=== PATIENT | male | born 1935 | race Caucasian/White ===

== ENCOUNTER 2016-12-23 08:18 | Emergency (ER) | payer MEDICARE, BC ==
--- NOTE | 2016-12-23 08:36 | Emergency Department Record ---
History of Present Illness - General Chief Complaint: Abdominal Pain Stated Complaint: ABD PAIN Time Seen by Provider: 12/23/16 08:29 Mode of Arrival: Ambulatory - History of Present Illness Initial Comments: patient has abd pain for 7 days and bloated and burping and having BM's last one last night. The pain is in the periumbilical area and now in all four quadrants. [facility] cardiac surg and he had pericardial fluid and had a window placed at [facility] Dr. Tee. No abdominal surg. PMH hypercholesterolemia, No vomiting ,No diarrhea but stools are loose, Past colonoscopy about 4 years ago with polps, EGD over 10 years ago history of diverticulosis MD Complaint: Abdominal pain Onset/Timin -: Week(s) Location: Epigastric Radiation: None Migration to: No migration Consistency: Intermittent Improves With: Nothing Worsens With: Nothing Associated Symptoms: Denies other symptoms - Related Data Home Medications Medication Instructions Recorded Confirmed Last Taken Pantoprazole Sodium 40 mg PO DAILY 12/23/16 12/23/16 Unknown Previous Rx's Medication Instructions Recorded Amoxicillin/Potassium Clav 1 each PO TID #30 tablet 12/23/16 [Augmentin 500-125 Tablet] Allergies Allergy/AdvReac Type Severity Reaction Status Date / Time No Known Drug Allergies Allergy Verified 07/17/14 11:14 Travel Screening - Travel/Exposure Within Last 30 Days Have you traveled within the last 30 days?: No Review of Systems Reviewed: No additional complaints except as noted below Constitutional: Reports: As per HPI. Denies: Chills, Fever, Malaise, Night sweats, Weakness, Weight change Eyes: Reports: As per HPI. Denies: Eye discharge, Eye pain, Photophobia, Vision change ENT: Reports: As per HPI. Denies: Congestion, Dental pain, Ear pain, Epistaxis , Hearing loss, Throat pain Respiratory: Reports: As per HPI. Denies: Cough, Dyspnea, Hemoptysis, Stridor, Wheezes Cardiovascular: Reports: As per HPI. Denies: Arrhythmia, Chest pain, Dyspnea on exertion, Edema, Murmurs, Orthopnea, Palpitations, Paroxysmal nocturnal dyspnea, Rheumatic Fever, Syncope Endocrine: Reports: As per HPI. Denies: Fatigue, Heat or cold intolerance, Polydipsia, Polyuria Gastrointestinal: Reports: As per HPI. Denies: Abdominal pain, Constipation, Diarrhea, Hematemesis, Hematochezia, Melena, Nausea, Vomiting Genitourinary: Reports: As per HPI. Denies: Dysuria, Frequency, Hematuria, Incontinence, Retention, Testicular pain, Testicular mass, Urgency Musculoskeletal: Reports: As per HPI. Denies: Arthralgia, Back pain, Gout, Joint swelling, Myalgia, Neck pain Skin: Reports: As per HPI. Denies: Bruising, Change in color, Change in hair/ nails, Lesions, Pruritus, Rash Neurological: Reports: As per HPI. Denies: Abnormal gait, Confusion, Headache, Numbness, Paresthesias, Seizure, Tingling, Tremors, Vertigo, Weakness Psychiatric: Reports: As per HPI. Denies: Anxiety, Auditory hallucinations, Depression, Homicidal thoughts, Suicidal thoughts, Visual hallucinations Hematological/Lymphatic: Reports: As per HPI. Denies: Anemia, Blood Clots, Easy bleeding, Easy bruising, Swollen glands Past Medical History - SOCIAL HISTORY Smoking Status: Former smoker Alcohol Use: None Drug Use: None - RESPIRATORY Hx Respiratory Disorders: Yes Hx Sleep Apnea: Yes - CARDIOVASCULAR Hx Cardio Disorders: Yes Hx Abnormal EKG: Yes Hx Cardiac Cath: Yes Hx Chest Pain: Yes Hx Heart Attack: Yes Hx Hypertension: Yes - NEURO Hx Neuro Disorders: No - GI Hx GI Disorders: No Hx of Polyps: Yes - Hx Genitourinary Disorders: No - ENDOCRINE Hx Endocrine Disorders: Yes Hx Diabetes: No Hx Thyroid Disease: Yes (hypo) - MUSCULOSKELETAL Hx Musculoskeletal Disorders: No - PSYCH Hx Psych Problems: No Hx Anxiety: Yes - HEMATOLOGY/ONCOLOGY Hx Hematology/Oncology Disorders: No Hx Cancer: No Family Medical History Any Significant Family History?: Yes Hx Heart Disease: Father, Brother/Sister Physical Exam - General General Appearance: Alert, Oriented x3, Cooperative, No acute distress - Head Head exam: Normal inspection - Eye Eye exam: Normal appearance, PERRL Pupils: Normal accommodation - ENT ENT exam: Normal exam, Mucous membranes moist, Normal external ear exam, Normal orophraynx, TM's normal bilaterally Ear exam: Normal external inspection. negative: External canal tenderness Nasal Exam: Normal inspection. negative: Discharge, Sinus tenderness Mouth exam: Normal external inspection, Tongue normal Teeth exam: Normal inspection. negative: Dental caries Throat exam: Normal inspection. negative: Tonsillar erythema, Tonsillar exudate - Neck Neck exam: Normal inspection, Full ROM. negative: Tenderness - Respiratory Respiratory exam: Normal lung sounds bilaterally. negative: Respiratory distress - Cardiovascular Cardiovascular Exam: Regular rate, Normal rhythm, Normal heart sounds - GI/Abdominal GI/Abdominal exam: Soft, Normal bowel sounds, Distended, Tenderness. negative: Guarding, Mass, Rebound, Rigid - Rectal Rectal exam: Deferred - exam: Deferred - Extremities Extremities exam: Normal inspection, Full ROM, Normal capillary refill. negative: Tenderness - Back Back exam: Reports: Normal inspection, Full ROM. Denies: Muscle spasm, Rash noted, Tenderness - Neurological Neurological exam: Alert, Normal gait, Oriented X3, Reflexes normal - Psychiatric Psychiatric exam: Normal affect, Normal mood - Skin Skin exam: Dry, Intact, Normal color, Warm Course Vital Signs 12/23/16 08:22 Temperature 98.2 F Pulse Rate 70 Respiratory 20 Rate Blood Pressure 170/74 Pulse Ox 94 L Medical Decision Making - Lab Data Result diagrams: 12/23/16 08:55 12/23/16 08:55 Disposition Clinical Impression: Total bilirubin, elevated Abdominal pain Qualifiers: Abdominal location: periumbilical Qualified Code(s): R10.33 - Periumbilical pain Diverticulitis large intestine Qualifiers: Diverticulitis bleeding: without bleeding Diverticulitis complication: without perforation or abscess Qualified Code(s): K57.32 - Diverticulitis of large intestine without perforation or abscess without bleeding Gallstone Qualifiers: Cholecystitis presence: without cholecystitis Biliary obstruction: without biliary obstruction Qualified Code(s): K80.20 - Calculus of gallbladder without cholecystitis without obstruction Disposition: Home, Self-Care Condition: (1) Good Instructions: Diverticulitis (ED) Additional Instructions: follow up with Dr. Manriquez in 5 days clear liquids and low fat diet Prescriptions: Amoxicillin/Potassium Clav [Augmentin 500-125 Tablet] 1 each PO TID #30 tablet Forms: Patient Portal Access Quality - Quality Measures Quality Measures: N/A - Blood Pressure Screening Does Patient Have Any of the Following: No Blood Pressure Classification: Hypertensive Reading Systolic Measurement: 170 Diastolic Measurement: 74 Screening for High Blood Pressure: < First Hypertensive BP, F/U Documented > [ G8950] First Hypertensive Follow-up Interventions: Referral to alternative/primary care provider.
[2016-12-23 09:01] LABS: BASO % 0.5 % (0-6); EOS % 2.5 % (0-6); GRAN % 77.5 % (47-80); HEMATOCRIT 41.8 % (42.0-52.0); HEMOGLOBIN 14.4 gm/dl (14.0-18.0); MEAN CELL VOLUME 93.1 fl (81-97); MEAN CORPUSCULAR HEMOGLOBIN 32.1 pg (27-33); MEAN CORPUSCULAR HGB CONC 34.4 g/dl (32-36); MONO % 9.5 % (0-9); PLATELET COUNT 225 K/uL (130-400); RED BLOOD COUNT 4.49 M/uL (4.40-5.70); RED CELL DISTRIBUTION WIDTH 13.6 % (11.5-14.5)
[2016-12-23] MEDS: 0.9 % SODIUM CHLORIDE 1000ML 1,000 ML IV PRN (09:04)
[2016-12-23 09:22] LABS: ALKALINE PHOSPHATASE 72 U/L (40-129); ALT/SGPT 14 U/L (<41); AST/SGOT 16 U/L (10.0-50.0); BILIRUBIN,DIRECT 0.2 mg/dL (0-0.3); BLOOD UREA NITROGEN 13 mg/dL (8-23); EST GLOMERULAR FILTRATION RATE > 60 mL/min; GLUCOSE,RANDOM 160 mg/dL (74-109); LIPASE 25 U/L (13-60)
[2016-12-23 10:31] LABS: URINE APPEARANCE CLEAR; URINE BILIRUBIN NEGATIVE (NEGATIVE); URINE BLOOD NEGATIVE (NEGATIVE); URINE COLOR YELLOW; URINE GLUCOSE (UA) NEGATIVE (NEGATIVE); URINE KETONE NEGATIVE (NEGATIVE); URINE LEUKOCYTE ESTERASE NEGATIVE (NEGATIVE); URINE NITRITE NEGATIVE (NEGATIVE); URINE PROTEIN NEGATIVE (NEGATIVE); URINE UROBILINOGEN 0.2 E.U./dL (0.20 - 1.00)
--- NOTE | 2016-12-24 11:01 | CT SCAN REPORT ---
EXAM: ABDOMEN AND PELVIS CT WITH IV CONTRAST HISTORY: ACUTE GENERALIZED PREDOMINANTLY PERIUMBILICAL ABDOMINAL PAIN, DISTENTION. TECHNIQUE: Contiguous axial images from the lung bases to the symphysis pubis were obtained after the uneventful intravenous administration of 100 ml of Omnipaque 300. Oral contrast was also utilized. Comparison: None. FINDINGS: There is a small amount of pleural based calcification on the left likely asbestos plaques. The lung bases are otherwise clear. The heart is mildly enlarged. The liver, spleen, and left kidney are unremarkable. Unilocular 1 cm cyst lower pole right kidney. The adrenals and pancreas are unremarkable. Minimal dependent hyperdensity in the gallbladder which could relate to tiny gallstones. No gallbladder distention, wall thickening or adjacent inflammation. There is circumferential wall thickening of the cecum measuring 15 mm in thickness with no significant pericecal fat stranding. There is also circumferential slightly asymmetric thickening of the terminal ileum measuring 14 mm in thickness. Normal appendix. The visualized loops of small and large bowel are of normal caliber. Moderate fecal material throughout the colon. Severe aortoiliac calcification without aneurysm. Severe calcification at the ostium of the celiac artery. Difficult to exclude severe stenosis. Severe calcification of the ostium and proximal SMA as well as the more distal SMA. Difficult to exclude severe stenosis. The ZUNILDA is patent. No free intraperitoneal fluid. Small, but conspicuous mesenteric lymph nodes in the right lower quadrant measuring 9 x 6 mm. No lytic or blastic lesion. IMPRESSION: 1. PROMINENT CIRCUMFERENTIAL WALL THICKENING OF THE CECUM WELL TERMINAL ILEUM WITH LACK OF ADJACENT INFLAMMATORY FAT STRANDING. THE DIAGNOSIS OF EXCLUSION IS PRIMARY MALIGNANCY. OTHER ETIOLOGIES WOULD INCLUDE ISCHEMIC COLITIS/ENTERITIS AND INFECTIOUS OR INFLAMMATORY PROCESS. RECOMMEND ENDOSCOPY WHEN THE PATIENT'S CONDITION ALLOWS TO FURTHER ASSESS. 2. SEVERE CALCIFICATION OF THE ABDOMINAL AORTA. CANNOT EXCLUDE SEVERE STENOSIS OF THE PROXIMAL CELIAC ARTERY AND SUPERIOR MESENTERIC ARTERY. 3. CHOLELITHIASIS WITHOUT SONOGRAPHIC EVIDENCE OF ACUTE CHOLECYSTITIS. 4. NORMAL APPENDIX. 5. CALCIFIED ASBESTOS PLAQUES LEFT LUNG BASE. JOB NUMBER: [id number] [facility]
== END 2016-12-23 12:22 | disposition home or self-care (01) ==
LOC: ER 08:18
DX: K80.20 Calculus of gallbladder without cholecystitis without obstruction (principal); K57.32 Diverticulitis of large intestine without perforation or abscess without bleeding; E80.6 Other disorders of bilirubin metabolism; I10 Essential (primary) hypertension; I25.2 Old myocardial infarction; Z87.891 Personal history of nicotine dependence
CPT/HCPCS: 99284 ×2; 96360; 96361; 83690; 85025; 80076; 80048; 81003; 74177; Q9967

== ENCOUNTER 2017-01-25 09:25 | Day surgery (SDC) | payer MEDICARE, BC ==
[2017-01-25] MEDS ORDERED: PROPOFOL 10 MG/ML VIAL IV ONE (09:26)
[2017-01-25] MEDS ORDERED: LIDOCAINE 2% MDV (20MG/ML) 20ML VIAL IV ONE (09:26)
--- NOTE | 2017-01-26 09:50 | Operative Note ---
Dictated by Dr. Francis Shannon DATE OF SURGERY: 01/25/2017 PREOPERATIVE DIAGNOSIS: Imaging findings. POSTOPERATIVE DIAGNOSIS: Ascending colon ulcer. PERFORMING PHYSICIAN: Andi Cavazos DO ASSISTING PHYSICIAN: Dr. Francis Shannon OPERATION: Diagnostic COLONOSCOPY with biopsy. ANESTHESIA: Provided by [facility] nurse cable coverer. For specific medications, please see medical records. INDICATIONS: The patient presented with CT findings of inflammation of the right colon. The patient has had colonoscopies in the past, most recent in 2012, being evaluated after 10 years for a screening colonoscopy. Did not indicate any history of adenomatous polyps and does have a history of diverticulosis. The patient does not report any abdominal pain or discomfort at this time. PROCEDURE: Risks and benefits of the colonoscopy were discussed in detail with the patient, and patient was given appropriate time to answer any questions. Consented for both the colonoscopy and anesthesia were signed, and the patient was then taken to endoscopy room where he was monitored with blood pressure cuff, pulse oximetry, and ECG tracing. The patient was then placed in the left lateral position and moderately sedated by the nurse cable coverer at bedside. Once it was confirmed that the patient was sedated, a rectal examination was done that did not show any abnormalities. Then a 180 colonoscope was lubricated and inserted into the rectum. Fluid and fecal matter was then suctioned and the scope was then advanced into the colon. Was able to advance the scope into the ascending colon where a linear ulceration that was semi-circumferential was appreciated on one of the colonic folds. At that point, the cecum could be identified by the ileocecal valve and seen from the mid ascending colon. Attempts were made to advance the colonoscope to cannulate the cecum including pressure stiffening of the scope and many attempts of decreasing any looping and suctioning, but all these failed to allow progression into the cecum at that time. From what was seen in the cecum could be evaluated and no obvious masses or inflammation was appreciated but unable to fully assess if there were any smaller abnormalities and unable to advance into the terminal ileum. Biopsies were taken, though, of the linear ulceration in the ascending colon. The scope was then withdrawn and visualization made and water and fecal matter suctioned with irrigation done as well for better visualization. Diverticulosis was appreciated in the distal descending colon through the sigmoid colon. Once in the rectum, retroflexion was completed and showed no clear abnormalities. Maybe some small internal hemorrhoids. Next, the patient was then recovered and there were no complications from the procedure. The patient tolerated the procedure very well with minimal bleeding appreciated. IMPRESSION: A linear ulcer in the ascending colon that seems consistent with ischemic colitis and the patient has a known history of atherosclerosis. Diverticulosis and small internal hemorrhoids. RECOMMENDATIONS: The patient should have repeat colonoscopies as needed since he is over the age of 73. Would recommend that he stay on a low-residue diet but most importantly is that he follow his current cardiac regimen and await pathology to assess further to see if any additional recommendations need to be made. I believe that he can just be clinically followed and the ulceration will improve with time. Attending was present and helped perform certain parts of the procedure. As always, thank you for allowing me to participate in the care of your patient. CC: WILLARD GROSS D.O. DERICK
== END 2017-01-25 12:32 | disposition home or self-care (01) ==
LOC: HOP 09:25
PROVIDERS: ATTEND Internal Medicine Gastroenterology
DX: Z12.11 Encounter for screening for malignant neoplasm of colon (principal); Z87.19 Personal history of other diseases of the digestive system; E78.00 Pure hypercholesterolemia, unspecified; F41.9 Anxiety disorder, unspecified; K63.3 Ulcer of intestine; K57.30 Diverticulosis of large intestine without perforation or abscess without bleeding; K55.9 Vascular disorder of intestine, unspecified; K64.8 Other hemorrhoids

== ENCOUNTER 2017-12-02 22:22 | Emergency (ER) | payer MEDICARE, BC ==
[2017-12-02] MEDS ORDERED: SODIUM CHLORIDE 0.9% 500 ML IV ONE (22:32)
[2017-12-02] MEDS ORDERED: ACETAMINOPHEN 1,000 MG/100 ML BTL IVPB ONE (22:33)
--- NOTE | 2017-12-02 22:39 | Emergency Department Record ---
History of Present Illness - General Chief Complaint: Abdominal Pain Stated Complaint: ABD PAIN Time Seen by Provider: 12/02/17 22:23 Source: Patient, Family Mode of Arrival: Ambulatory Limitations: No limitations - History of Present Illness Initial Comments: 82 yo male presents with abdominal pain that started about 30 minutes prior to arrival. The pain started at the umbilicus. The pain in mostly middle of the abdomen. The pain does radiate up from the umbilicus to the epigastric area. He denies any radiation to the chest or back. No shortness of breath. No vomiting or diarrhea. No changes in stools. He did report some burping and belching. He has a history of hernia, diverticulitis, colonic ulcer. His last colonoscopy was in January of [address] Caavzos. No abdominal surgery history. The patient's last regular meal was lunch. He only had 4 grapes in the evening. MD Complaint: Abdominal pain -: Hour(s) (1) Location: Periumbilical Radiation: Epigastric Migration to: Periumbilical Severity: Moderate Quality: Aching, Cramping Consistency: Constant Improves With: Nothing Worsens With: Movement Associated Symptoms: Anorexia - Related Data Allergies Allergy/AdvReac Type Severity Reaction Status Date / Time No Known Drug Allergies Allergy Verified 07/17/14 11:14 Review of Systems Constitutional: Denies: Chills, Fever, Malaise, Weakness Eyes: Denies: Eye discharge ENT: Denies: Congestion, Dental pain, Ear pain, Throat pain Respiratory: Denies: Cough, Dyspnea, Hemoptysis, Stridor, Wheezes Cardiovascular: Denies: Chest pain, Edema, Palpitations, Syncope Endocrine: Denies: Fatigue, Polyuria Gastrointestinal: Reports: As per HPI, Abdominal pain, Nausea. Denies: Constipation, Diarrhea, Hematochezia, Melena, Vomiting Genitourinary: Denies: Dysuria, Frequency, Hematuria Musculoskeletal: Denies: Arthralgia, Back pain, Joint swelling, Myalgia, Neck pain Skin: Denies: Bruising, Change in color, Rash Neurological: Denies: Headache, Numbness, Weakness Psychiatric: Denies: Anxiety Hematological/Lymphatic: Denies: Blood Clots, Easy bleeding, Easy bruising Past Medical History - SOCIAL HISTORY Smoking Status: Former smoker - RESPIRATORY Hx Respiratory Disorders: Yes Hx Dyspnea: Yes Hx Sleep Apnea: Yes Hx of CPAP: Yes - CARDIOVASCULAR Hx Cardio Disorders: Yes Hx Abnormal EKG: Yes Hx Cardiac Cath: Yes Hx Chest Pain: Yes Hx Heart Attack: Yes Hx Hypertension: Yes - NEURO Hx Neuro Disorders: Yes Hx Neuropathy: Yes - GI Hx GI Disorders: Yes Hx Abdominal Pain: Yes (RUQ tightness r/t gas) Hx of Polyps: Yes - Hx Genitourinary Disorders: No - ENDOCRINE Hx Endocrine Disorders: Yes Hx Diabetes: No Hx Thyroid Disease: Yes (hypo) - MUSCULOSKELETAL Hx Musculoskeletal Disorders: Yes Hx Gout: Yes - PSYCH Hx Psych Problems: Yes Hx Anxiety: Yes - HEMATOLOGY/ONCOLOGY Hx Hematology/Oncology Disorders: No Family Medical History Hx Heart Disease: Father, Brother/Sister Physical Exam - General General Appearance: Alert, Oriented x3, Cooperative, No acute distress Limitations: No limitations - Head Head exam: Atraumatic, Normocephalic, Normal inspection - Eye Eye exam: Normal appearance. negative: Conjunctival injection, Scleral icterus - ENT ENT exam: Normal exam Ear exam: Normal external inspection Nasal Exam: Normal inspection Mouth exam: Normal external inspection - Neck Neck exam: Normal inspection - Respiratory Respiratory exam: Normal lung sounds bilaterally. negative: Chest wall tenderness, Decreased breath sounds, Respiratory distress, Rhonchi, Stridor, Wheezes - Cardiovascular Cardiovascular Exam: Regular rate, Normal rhythm, Normal heart sounds Peripheral Pulses: 2+: Radial (R), Radial (L) - GI/Abdominal GI/Abdominal exam: Soft, Normal bowel sounds, Tenderness (Tenderness in the mid abdomen near the umbilicus, soft, no obvious mass or pulsation but limitation due to obesity). negative: Distended, Guarding, Hernia, Mass, Pulsatile mass, Rebound, Rigid - Rectal Rectal exam: Deferred - exam: Deferred - Extremities Extremities exam: Normal inspection, Full ROM, Normal capillary refill. negative: Tenderness - Back Back exam: Denies: CVA tenderness (R), CVA tenderness (L) - Neurological Neurological exam: Alert, Oriented X3 - Psychiatric Psychiatric exam: Normal affect, Normal mood - Skin Skin exam: Dry, Intact, Normal color, Warm Course - Reevaluation(s) Reevaluation #1: EKG EKG #1: 2232 Rate: 58 Rhythm: sinus [place]: Left Intervals: Qtc 468 ST segments: Non specific lateral T wave changes. The T wave changes are UNCHANGED from previous EKG's dating back to 2013. Prior: Multiple, No changes going back to 11/22/13 12/02/17 22:39 01/2017 Endoscopy reviewed. 12/02/17 22:41 12/02/17 22:59 No acute changes on the CBC 12/02/17 23:07 On recheck the pain is still periumbilical. He has associated dry heaves now. Last BM was tonight. The abdomen remains very soft but tender in the umbilical area. 12/02/17 23:08 BP was much improved on recheck 12/02/17 23:09 Normal CMP and Lipase on the labs. 12/02/17 23:28 States pain is only minimally improved. Abdomen is soft and tender just above the umbilicus. 12/02/17 23:39 12/02/17 23:59 The patient tolerated one bottle of contrast at this time. 12/03/17 00:21 Lactic Acid normal range at 2.1. 12/03/17 01:18 CT from [facility] reviewed. Distal esophageal wall thickening, may be related to esphagitis, Cardiomegally, Coronary calcifications, cholelithiasis, high grade stenosis of the L. common iliac artery, celiac trunk and SMA. No evidence of end organ ischemia. The patient still reports mild persistent pain but much improved. I will discuss this with personal lines agent surgery. 12/03/17 01:46 The pain is now essentially gone. He still has nausea. Awaiting call back. 12/03/17 01:57 I KYLAH Borden of General Surgery. Given the multiple findings on the CT scan hre recommends transfer ED to ED for evaluation. I KYLAH Mendes of the ED. He accepts the patient for transfer and general surgery consultation. 12/03/17 02:15 Current pain level is 1/10 He still has nausea. Medical Decision Making - Lab Data Result diagrams: 12/02/17 22:35 12/02/17 22:35 Disposition Disposition: Transfer Clinical Impression: Abdominal pain Disposition: Acute Care Hospital Transfer Transfer To: [facility] [place] For Transfer: Abdominal Pain Accepting Physician: Cinthya Borden Time Discussed w/Accepting Physician: 01:56 Condition: (2) Stable Forms: Patient Portal Access Time of Disposition: 01:56 Quality - Quality Measures Quality Measures: N/A - Blood Pressure Screening Does Patient Have Any of the Following: Active Dx of HTN Blood Pressure Classification: Hypertensive Reading Systolic Measurement: 205 Diastolic Measurement: 92 Screening for High Blood Pressure: Patient Exclusion, Hx of HTN [G9744]
[2017-12-02 22:47] LABS: BASO % 0.9 % (0-6); EOS % 5.8 % (0-6); GRAN % 62.2 % (47-80); HEMATOCRIT 43.6 % (42.0-52.0); HEMOGLOBIN 14.6 gm/dl (14.0-18.0); LYMPH % 20.8 % (16-45); MEAN CORPUSCULAR HEMOGLOBIN 31.1 pg (27-33); MEAN CORPUSCULAR HGB CONC 33.5 g/dl (32-36); MEAN PLATELET VOLUME 9.8 fl (7.4-10.4); MONO % 10.3 % (0-9); PLATELET COUNT 268 K/uL (130-400); RED BLOOD COUNT 4.69 M/uL (4.40-5.70); RED CELL DISTRIBUTION WIDTH 13.7 % (11.5-14.5)
[2017-12-02 22:58] LABS: BLOOD UREA NITROGEN 15 mg/dL (8-23); CREATININE 1.2 mg/dL (0.7-1.2); EST GLOMERULAR FILTRATION RATE > 60 mL/min; INR 1.1; PARTIAL THROMBOPLASTIN TIME 29.7 SECONDS (24.5-39.1); PROTHROMBIN TIME (PATIENT) 10.7 SECONDS (9.5-12.1)
[2017-12-02 22:59] LABS: TOTAL PROTEIN 7.1 g/dL (6.6-8.7)
[2017-12-02] MEDS ORDERED: MORPHINE SULFATE 10 MG/ML VIAL IVP ONE (22:59)
[2017-12-02 23:01] LABS: GLUCOSE,RANDOM 132 mg/dL (74-109)
[2017-12-02 23:03] LABS: ALT/SGPT 12 U/L (<41)
[2017-12-02 23:04] LABS: ALBUMIN 4.3 g/dL (4.0-5.0); ALKALINE PHOSPHATASE 91 U/L (40-129); AST/SGOT 18 U/L (10.0-50.0); BILIRUBIN,DIRECT < 0.2 mg/dL (0-0.3); LIPASE 30 U/L (13-60)
[2017-12-02] MEDS ORDERED: ONDANSETRON 4 MG ODT TABLET SL ONE (23:07)
[2017-12-02] MEDS ORDERED: ONDANSETRON HCL IV 4 MG/2 ML VIAL IVP ONE (23:09)
[2017-12-02] MEDS ORDERED: FENTANYL PF 100MCG/2ML VIAL IVP ONE (23:39)
[2017-12-03] MEDS ORDERED: 0.9 % SODIUM CHLORIDE 1000ML 1,000 ML IV ONE (01:26)
[2017-12-03] MEDS ORDERED: PANTOPRAZOLE SODIUM IV 40 MG VIAL IVP ONE (01:26)
[2017-12-03] MEDS ORDERED: ONDANSETRON HCL IV 4 MG/2 ML VIAL IVP ONE (02:15)
--- NOTE | 2017-12-04 14:25 | CT SCAN REPORT ---
DATE: 12/02/2017. EXAM: POSTCONTRAST CT SCAN OF THE ABDOMEN AND PELVIS WITH CONTRAST. HISTORY: EPIGASTRIC PAIN AND NAUSEA FOR THREE HOURS. TECHNIQUE: Postcontrast CT of the abdomen and pelvis with 100 mL of Omnipaque 300 intravenous contrast agent utilized. COMPARISON: CT of the abdomen and pelvis dated 12/23/2016. FINDINGS: Pericardial and bilateral pleural calcified plaques are again noted. Cholelithiasis. Mild fatty atrophy of the pancreas. Unremarkable appearance of the liver, spleen, and adrenal glands. Symmetric renal perfusion. No hydronephrosis. An approximate 2.0 mm right intrarenal calculus. Likely small bilateral renal cortical cysts similar to comparison. Mild, nonspecific circumferential thickening of the distal esophagus. The stomach is distended with likely ingested material. The small bowel is nondilated. No focal colonic thickening or inflammatory changes. Scattered colonic diverticulosis without evidence of acute diverticulitis. No free air or free fluid. No mesenteric adenopathy. Coarse calcification of the prostate gland. Mild distension of the urinary bladder. Both inguinal canals are patulous and fat containing. Diffuse atherosclerotic calcification of the aortoiliac arterial axis. Densely calcified plaques at the origins of the celiac and superior mesenteric arteries with likely high-grade stenosis. Likely high-grade stenosis as well involving the proximal right and left common iliac arteries proximally. Multilevel lumbar spine degenerative changes with evidence of significant disc degeneration at L5-S1. IMPRESSION: 1. MILD, CIRCUMFERENTIAL WALL THICKENING OF THE DISTAL ESOPHAGUS, NONSPECIFIC BUT MAY BE SEEN WITH INFECTIOUS OR INFLAMMATORY ETIOLOGIES. CORRELATION WITH DIRECT VISUALIZATION MAY BE OF BENEFIT. 2. REDEMONSTRATION OF PERICARDIAL AND BILATERAL PLEURAL CALCIFIED PLAQUES. 3. CHOLELITHIASIS. 4. 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 5. COLONIC DIVERTICULOSIS WITHOUT EVIDENCE OF ACUTE DIVERTICULITIS. 6. ADDITIONAL CHRONIC/INCIDENTAL FINDINGS DISCUSSED IN THE BODY OF THE REPORT ABOVE. JOB NUMBER: [id number] [facility]
== END 2017-12-03 02:45 | disposition short-term general hospital (02) ==
LOC: ER 22:22
DX: R10.13 Epigastric pain (principal); R11.0 Nausea; I25.2 Old myocardial infarction; I10 Essential (primary) hypertension; Z87.891 Personal history of nicotine dependence
CPT/HCPCS: 99285 ×2; 96376; 96374; 96375; 83605; 83690; 85025; 85730; 85610; 80076; 80048; 84484; 74177; 93005; 93010; Q9967; J2405 ×2; J3010; J2270; C9113; J7030

== ENCOUNTER 2017-12-10 00:19 | Emergency (ER) | payer MEDICARE, BC ==
--- NOTE | 2017-12-10 00:30 | Emergency Department Record ---
History of Present Illness - General Stated Complaint: TROUBLE BREATHING Time Seen by Provider: 12/10/17 00:21 Source: Patient, Family Mode of Arrival: Ambulatory Limitations: No limitations - History of Present Illness Initial Comments: 82 yo male presents with chest pain. The pain first came on at 9pm. It lasted about 15 minutes. The pain then resolved but returned later with some pain in the shoulder blades. It has again resolved. No vomiting. He is not short of breath. No abdominal pain. 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 He has a history of one coronary stent in 2000. He had a pericardial window several years ago as well. In the past he saw Dr Grimes and Smooth. He has not needed to see a podiatric foot and ankle specialist for several years. He was admitted to [facility] [place] for abdominal pain last week. He had upper endoscopy. The abdominal pain has not returned. His appetite returned to normal. 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 MD Complaint: Chest pain -: Hour(s) (3) Onset: During rest Pain Location: Substernal Pain Radiation: Back (shoulder blades) Severity: Moderate Quality: Aching Consistency: Constant Improves With: Nothing Worsens With: Nothing Anginal Symptoms: Other - Related Data Home Medications Medication Instructions Recorded Confirmed Last Taken Metoclopramide HCl 10 mg PO DAILY 12/10/17 12/10/17 12/09/17 Allergies Allergy/AdvReac Type Severity Reaction Status Date / Time No Known Drug Allergies Allergy Verified 07/17/14 11:14 Review of Systems Constitutional: Denies: Chills, Weakness Eyes: Denies: Eye discharge ENT: Denies: Congestion, Throat pain Respiratory: Denies: Cough, Dyspnea Cardiovascular: Reports: Chest pain, Edema. Denies: Palpitations, Syncope Endocrine: Denies: Fatigue Gastrointestinal: Denies: Abdominal pain, Diarrhea, Nausea, Vomiting Genitourinary: Denies: Dysuria, Frequency, Hematuria Musculoskeletal: Denies: Arthralgia, Back pain, Myalgia Skin: Denies: Bruising, Change in color Neurological: Denies: Headache Psychiatric: Denies: Anxiety Hematological/Lymphatic: Denies: Blood Clots, Easy bleeding, Easy bruising, Swollen glands Past Medical History - SOCIAL HISTORY Smoking Status: Former smoker - RESPIRATORY Hx Respiratory Disorders: Yes Hx Dyspnea: Yes Hx Sleep Apnea: Yes Hx of CPAP: Yes - CARDIOVASCULAR Hx Cardio Disorders: Yes Hx Abnormal EKG: Yes Hx Cardiac Cath: Yes Hx Chest Pain: Yes Hx Heart Attack: Yes Hx Hypertension: Yes - NEURO Hx Neuro Disorders: Yes Hx Neuropathy: Yes - GI Hx GI Disorders: Yes Hx Abdominal Pain: Yes (RUQ tightness r/t gas) Hx of Polyps: Yes - Hx Genitourinary Disorders: No - ENDOCRINE Hx Endocrine Disorders: Yes Hx Diabetes: No Hx Thyroid Disease: Yes (hypo) - MUSCULOSKELETAL Hx Musculoskeletal Disorders: Yes Hx Gout: Yes - PSYCH Hx Psych Problems: Yes Hx Anxiety: Yes - HEMATOLOGY/ONCOLOGY Hx Hematology/Oncology Disorders: No Family Medical History Hx Heart Disease: Father, Brother/Sister Physical Exam - General General Appearance: Alert, Oriented x3, Cooperative, No acute distress Limitations: No limitations - Head Head exam: Atraumatic, Normal inspection - Eye Eye exam: Normal appearance. negative: Conjunctival injection - ENT ENT exam: Normal exam, Mucous membranes moist Ear exam: Normal external inspection Nasal Exam: Normal inspection Mouth exam: Normal external inspection Teeth exam: Normal inspection - Neck Neck exam: Normal inspection - Respiratory Respiratory exam: Normal lung sounds bilaterally. negative: Respiratory distress, Rhonchi, Stridor, Wheezes - Cardiovascular Cardiovascular Exam: Regular rate, Normal rhythm, Normal heart sounds - GI/Abdominal GI/Abdominal exam: Soft. negative: Tenderness - Rectal Rectal exam: Deferred - exam: Deferred - Extremities Extremities exam: Full ROM, Normal capillary refill, Pedal edema (mild bilateral ). negative: Normal inspection, Tenderness - Back Back exam: Reports: Normal inspection, Full ROM. Denies: Muscle spasm, Rash noted, Tenderness - Neurological Neurological exam: Alert, Normal gait, Oriented X3 - Psychiatric Psychiatric exam: Normal affect, Normal mood - Skin Skin exam: Dry, Intact, Normal color, Warm Course - Reevaluation(s) Reevaluation #1: EKG 0024 Sinus rhythm rate 60 Intervals QTc [address] NS inferior lateral changes No changes from 12/02/17 12/10/17 00:32 12/10/17 00:53 No acute changes on the CBC 12/10/17 00:57 The BMP demonstrates a K of 3.3 otherwise negative The patient remains 0/10 and pain free at this time. 12/10/17 01:01 The troponin is negative 12/10/17 01:03 I discussed with the patient my recommendation for admission for his chest pain. I explained that [facility] will not have a podiatric foot and ankle specialist in the hospital and I will need to transfer him. He refuses transfer and admission at this time. I explained with his history a serious or life threatening cause of his pain is possible. He understands. He states he is still not willing to be admitted with the understanding that a full work up or testing has not been completed to rule out a life threatening cause for his pain. His pain was at 9pm and the troponin was drawn at 00:30 and was negative. I will recommend serial enzymes. If he still refuses admission/transfer I will discussed the AMA process. 12/10/17 01:10 The CXR was preliminarily read as no acute process, chronic changes 12/10/17 01:31 The patient will agrees to remain for a 2nd set but he has not changed his mind about transfer for cardiology evaluation. I explained he will have to sign out AMA. He agrees to this plan. He request something for sleep until then. 12/10/17 04:16 The repeat troponin is normal. The patient denies any return of pain He still declines transfer to for cardiology consultation Medical Decision Making - Lab Data Result diagrams: 12/10/17 00:30 12/10/17 00:30 Disposition Disposition: Discharge Clinical Impression: Chest pain Disposition: Against Medical Advice Condition: (2) Stable Instructions: Chest Pain (ED), Against Medical Advice (ED) Additional Instructions: You may return at any time to be seen Call Dr Grimes or Smooth of Cardiology and your doctor tomorrow for follow up of the chest pain. You are signing out Against Medical Advice given your work up is not complete for the chest pain. You may change your mind or return at any time to be seen Referrals: ADELITA GRIMES D.O. [DOCTOR OF OSTEOPATH] - Lew Rebollar M.D. [MEDICAL DOCTOR] - Forms: Patient Portal Access Time of Disposition: 04:17 Quality - Quality Measures Quality Measures: N/A - Blood Pressure Screening Does Patient Have Any of the Following: Active Dx of HTN Blood Pressure Classification: Hypertensive Reading Systolic Measurement: 160 Diastolic Measurement: 75 Screening for High Blood Pressure: Patient Exclusion, Hx of HTN [G9744]
[2017-12-10] MEDS ORDERED: ASPIRIN 81 MG CHEWABLE TABLET PO ONE (00:33)
[2017-12-10 00:39] LABS: BASO % 0.7 % (0-6); EOS % 3.5 % (0-6); GRAN % 70.4 % (47-80); HEMOGLOBIN 14.1 gm/dl (14.0-18.0); LYMPH % 15.8 % (16-45); MEAN CELL VOLUME 91.3 fl (81-97); MEAN CORPUSCULAR HEMOGLOBIN 30.7 pg (27-33); MEAN CORPUSCULAR HGB CONC 33.6 g/dl (32-36); MEAN PLATELET VOLUME 9.9 fl (7.4-10.4); MONO % 9.6 % (0-9); PLATELET COUNT 323 K/uL (130-400); RED CELL DISTRIBUTION WIDTH 13.3 % (11.5-14.5); WHITE BLOOD COUNT W/O DIFF 8.5 K/uL (4.2-12.2)
[2017-12-10 00:51] LABS: INR 1.1; PARTIAL THROMBOPLASTIN TIME 33.2 SECONDS (24.5-39.1); PROTHROMBIN TIME (PATIENT) 10.8 SECONDS (9.5-12.1)
[2017-12-10 00:52] LABS: BLOOD UREA NITROGEN 11 mg/dL (8-23); CREATININE 1.1 mg/dL (0.7-1.2); EST GLOMERULAR FILTRATION RATE > 60 mL/min
[2017-12-10 00:53] LABS: TOTAL PROTEIN 7.2 g/dL (6.6-8.7)
[2017-12-10 00:55] LABS: GLUCOSE,RANDOM 151 mg/dL (74-109)
[2017-12-10 00:57] LABS: ALT/SGPT 16 U/L (<41); AST/SGOT 21 U/L (10.0-50.0)
[2017-12-10 00:58] LABS: ALB/GLOB RATIO 1.1 (1.1-1.8); ALBUMIN 3.7 g/dL (4.0-5.0); ALKALINE PHOSPHATASE 137 U/L (40-129)
[2017-12-10] MEDS ORDERED: DIPHENHYDRAMINE HCL 25 MG CAPSULE PO ONE (01:29)
[2017-12-10] MEDS ORDERED: ACETAMINOPHEN 500 MG TABLET PO ONE (01:29)
--- NOTE | 2017-12-11 14:43 | RADIOLOGY REPORT ---
DATE: 12/10/2017 at 0102 hours. EXAM: TWO VIEWS OF THE CHEST. HISTORY: DIFFICULTY BREATHING. TECHNIQUE: Two views of the chest. COMPARISON: 07/17/2014. FINDINGS: When compared to the examination of 07/17/2014, there has been no significant change in cardiac size or pulmonary vascularity. There is no evidence of segmental pneumonia, but there are bands of atelectasis near the cardiac apex and right mid lung. Additionally, there are chronic opacities in the right apex likely representing either calcified pleural plaque or upper lobe granulomata. There are no effusions. The bones are unremarkable. IMPRESSION: PATCHY ATELECTASIS. NO ACUTE INFILTRATE. JOB NUMBER: [id number] [facility]
== END 2017-12-10 04:35 | disposition left against medical advice (07) ==
LOC: ER 00:19
DX: R07.89 Other chest pain (principal); R06.00 Dyspnea, unspecified; R60.0 Localized edema; I10 Essential (primary) hypertension; I25.2 Old myocardial infarction; Z95.5 Presence of coronary angioplasty implant and graft; Z87.891 Personal history of nicotine dependence
CPT/HCPCS: 71046; 80053; 84484; 85025; 85610; 85730; 93005; 93010; 99284

== ENCOUNTER 2017-12-26 18:12 | Emergency (ER) | payer MEDICARE, BC ==
[2017-12-26] MEDS ORDERED: 0.9 % SODIUM CHLORIDE 1000ML 1,000 ML IV ONE ×2 (18:22→19:15)
[2017-12-26] MEDS ORDERED: FENTANYL PF 100MCG/2ML VIAL IVP ONE ×3 (18:33→20:11)
[2017-12-26] MEDS ORDERED: ONDANSETRON HCL IV 4 MG/2 ML VIAL IVP ONE (18:33)
--- NOTE | 2017-12-26 18:35 | Emergency Department Record ---
History of Present Illness - General Chief Complaint: Abdominal Pain Stated Complaint: ABD PAIN Time Seen by Provider: 12/26/17 18:19 Source: Patient, Family Mode of Arrival: Ambulatory Limitations: No limitations - History of Present Illness Initial Comments: 82 yo male presents with abdominal pain on and off every few days for the last 3 weeks. He presents today with mid abdominal pain and vomiting. No diarrhea. No chest pain. On December [address] scan that demonstrated gallstones , thickened distal esophagus and 90% narrowing at the SMA and Celiac arteries. He was [place] [facility] [place]. He had upper endoscopy. No fever. No diarrhea. No blood in his stools. He has some decrease in appetite. PCP is Declan. GI is Macy. Complaint: Abdominal pain Onset/Timin -: Week(s) Location: Periumbilical Radiation: Epigastric Migration to: Epigastric, Periumbilical Severity scale (1-10): 5 Consistency: Constant Improves With: Nothing Worsens With: Nothing Associated Symptoms: Chills, Nausea, Vomiting - Related Data Allergies Allergy/AdvReac Type Severity Reaction Status Date / Time No Known Drug Allergies Allergy Verified 07/17/14 11:14 Travel Screening - Travel/Exposure Within Last 30 Days Have you traveled within the last 30 days?: No - Travel/Exposure Within Last Year Have you traveled outside the [place] in the last year?: No - Additonal Travel Details Have you been exposed to anyone with a communicable illness?: No - Travel Symptoms Symptom Screening: Vomiting Review of Systems Constitutional: Denies: Chills, Fever, Malaise, Weakness Eyes: Denies: Eye discharge, Eye pain ENT: Denies: Congestion Respiratory: Denies: Cough Cardiovascular: Denies: Chest pain, Syncope Endocrine: Denies: Fatigue Gastrointestinal: Reports: Abdominal pain, Constipation, Nausea, Vomiting. Denies: Diarrhea, Hematochezia, Melena Genitourinary: Denies: Dysuria, Frequency, Hematuria Musculoskeletal: Denies: Arthralgia, Back pain, Neck pain Skin: Denies: Bruising, Change in color, Rash Neurological: Denies: Headache Psychiatric: Denies: Anxiety Hematological/Lymphatic: Denies: Easy bleeding, Easy bruising Past Medical History - SOCIAL HISTORY Smoking Status: Former smoker Alcohol Use: None Drug Use: None - RESPIRATORY Hx Respiratory Disorders: Yes Hx Dyspnea: Yes Hx Sleep Apnea: Yes Hx of CPAP: Yes - CARDIOVASCULAR Hx Cardio Disorders: Yes Hx Abnormal EKG: Yes Hx Cardiac Cath: Yes Hx Chest Pain: Yes Hx Heart Attack: Yes Hx Hypertension: Yes - NEURO Hx Neuro Disorders: Yes Hx Neuropathy: Yes - GI Hx GI Disorders: Yes Hx Abdominal Pain: Yes (RUQ tightness r/t gas) Hx of Polyps: Yes - Hx Genitourinary Disorders: No - ENDOCRINE Hx Endocrine Disorders: Yes Hx Diabetes: No Hx Thyroid Disease: Yes (hypo) - MUSCULOSKELETAL Hx Musculoskeletal Disorders: Yes Hx Gout: Yes - PSYCH Hx Psych Problems: Yes Hx Anxiety: Yes - HEMATOLOGY/ONCOLOGY Hx Hematology/Oncology Disorders: No Hx Cancer: No Family Medical History Any Significant Family History?: No Hx Heart Disease: Father, Brother/Sister Physical Exam - General General Appearance: Alert, Oriented x3, Cooperative, No acute distress Limitations: No limitations - Head Head exam: Atraumatic, Normal inspection - Eye Eye exam: Normal appearance, Conjunctival injection - ENT ENT exam: Normal exam, Mucous membranes moist Ear exam: Normal external inspection Nasal Exam: Normal inspection Mouth exam: Normal external inspection - Neck Neck exam: Normal inspection - Respiratory Respiratory exam: Normal lung sounds bilaterally. negative: Respiratory distress, Rhonchi, Wheezes - Cardiovascular Cardiovascular Exam: Regular rate, Normal rhythm, Normal heart sounds - GI/Abdominal GI/Abdominal exam: Soft, Normal bowel sounds, Other (The abdomen is very soft, no guarding or rebound. He points to the mid abdomen as the location). negative: Diminished bowel sounds, Distended, Guarding, Rebound, Tenderness - Rectal Rectal exam: Deferred - exam: Deferred - Extremities Extremities exam: Normal inspection. negative: Tenderness - Back Back exam: Denies: CVA tenderness (R), CVA tenderness (L), Tenderness - Neurological Neurological exam: Alert, Oriented X3 - Psychiatric Psychiatric exam: Normal affect, Normal mood. negative: Agitated, Anxious - Skin Skin exam: Dry, Intact, Normal color, Warm Course Vital Signs 12/26/17 18:20 Temperature 97.5 F L Pulse Rate 81 Respiratory 20 Rate Blood Pressure 190/84 Pulse Ox 96 - Reevaluation(s) Reevaluation #1: 12/26/17 18:36 EMR reviewed from 12/02/17 ED visit. 12/26/17 18:53 the CBC was reviewed. No acute changes. 12/26/17 19:10 The CMP was reviewed. The HCO3 is 21 AG is 19 The Lactic acid is elevated at 3.9 The pain level has increased since the pain medication was given. 12/26/17 19:14 General surgery paged at this time 12/26/17 19:[address] Borden. He agreed with CT and transfer. Hold heparin for now. 12/26/17 20:01 I called the radiologist. CT has findings that may represent pneumotosis and air in a vessel likely ischemic in nature Dr Borden notified. Stat [place] [facility] [place]. 12/26/17 20:07 The patient is accepted ED to ED at [facility] [place] Velasco accepts the patient 12/26/17 Prior to DC heparin, antibiotics, additional IVF given EMS was contacted for STAT transfer Medical Decision Making - Lab Data Result diagrams: 12/26/17 18:30 12/26/17 18:30 Disposition Disposition: Transfer Clinical Impression: Abdominal pain, Elevated lactic acid level, Ischemic bowel syndrome Disposition: Acute Care Hospital Transfer [place] [facility] Reason For Transfer: Abdominal Pain, Elevated Lactic Acid Accepting Physician: Krista Borden Time Discussed w/Accepting Physician: 20:08 Condition: (3) Guarded Forms: Patient Portal Access Time of Disposition: 20:08 Quality - Quality Measures Quality Measures: N/A - Blood Pressure Screening Does Patient Have Any of the Following: No Blood Pressure Classification: Pre-Hypertensive BP Reading Systolic Measurement: 190 Diastolic Measurement: 84 Screening for High Blood Pressure: < Pre-Hypertensive BP, F/U Documented > [ G8950] Pre-Hypertensive Follow-up Interventions: Referral to alternative/primary care provider.
[2017-12-26 18:43] LABS: BASO % 0.6 % (0-6); EOS % 2.2 % (0-6); GRAN % 74.6 % (47-80); HEMATOCRIT 43.3 % (42.0-52.0); HEMOGLOBIN 14.3 gm/dl (14.0-18.0); MEAN CELL VOLUME 91.4 fl (81-97); MEAN CORPUSCULAR HEMOGLOBIN 30.2 pg (27-33); MONO % 6.6 % (0-9); PLATELET COUNT 317 K/uL (130-400); RED BLOOD COUNT 4.74 M/uL (4.40-5.70); RED CELL DISTRIBUTION WIDTH 14.4 % (11.5-14.5); WHITE BLOOD COUNT W/O DIFF 8.3 K/uL (4.2-12.2)
[2017-12-26 18:56] LABS: BLOOD UREA NITROGEN 11 mg/dL (8-23); CREATININE 1.1 mg/dL (0.7-1.2); EST GLOMERULAR FILTRATION RATE > 60 mL/min; INR 1.1; PARTIAL THROMBOPLASTIN TIME 29.5 SECONDS (24.5-39.1); PROTHROMBIN TIME (PATIENT) 11.1 SECONDS (9.5-12.1)
[2017-12-26 18:57] LABS: TOTAL PROTEIN 6.9 g/dL (6.6-8.7)
[2017-12-26 18:59] LABS: GLUCOSE,RANDOM 161 mg/dL (74-109)
[2017-12-26 19:02] LABS: ALB/GLOB RATIO 1.4 (1.1-1.8); ALKALINE PHOSPHATASE 102 U/L (40-129); ALT/SGPT 9 U/L (<41); AST/SGOT 17 U/L (10.0-50.0); LIPASE 23 U/L (13-60)
[2017-12-26] MEDS ORDERED: HEPARIN SODIUM 1000 UNIT/1 ML 10ML VIAL IVP ONE (20:03)
[2017-12-26] MEDS ORDERED: PROMETHAZINE HCL 12.5 MG in 0.9 % SODIUM CHLORIDE 100ML 100 ML IVPB ONE (20:04)
[2017-12-26] MEDS ORDERED: ERTAPENEM SODIUM 1 G in 0.9 % SODIUM CHLORIDE 100ML 100 ML IVPB ONE (20:05)
[2017-12-26] MEDS ORDERED: HEPARIN SODIUM/D5W 25,000 UNITS/500 ML BAG IV SCH ×2 (20:15→20:30)
--- NOTE | 2017-12-27 14:42 | CT SCAN REPORT ---
EXAM: CT SCAN OF THE ABDOMEN AND PELVIS HISTORY: PATIENT HAS LOWER ABDOMINAL PAIN. TECHNIQUE: Serial axial CT scan of the abdomen and pelvis was performed at 2.5 mm intervals from the dome of the diaphragm down to the pubic symphysis following the intravenous administration of 100 ml of Omnipaque 300. Sagittal and coronal reconstructions are provided. Comparison: CT scan of the abdomen and pelvis dated 12/03/17 is provided. FINDINGS: The lung windows of the lung bases demonstrate no CT evidence of a focal infiltrate or pleural effusion. Calcified granuloma within the right lung base is unchanged. Pleural based calcification within the left lower lobe is unchanged. Mild esophageal thickening is noted within the distal esophagus which may be the result of gastroesophageal reflux. Small hiatal hernia is noted. The liver, spleen, pancreas, and adrenal glands are unremarkable. Gallstones are noted within the gallbladder without CT evidence of cholecystitis. The bilateral kidneys demonstrate no CT evidence of hydronephrosis or hydroureter. Occasional nonobstructive 2 mm calculi are noted within the right kidney. A simple cyst is noted within the inferior pole of the right kidney. The contour and caliber of the abdominal aorta is within normal limits. There is advanced calcified atherosclerotic disease within the distal infrarenal abdominal aorta adjacent to the aortic bifurcation. Significant origin stenosis of the right common iliac and proximal left common iliac arteries are identified. As noted on the previous CT scan there is significant origin stenosis of the celiac and superior mesenteric arteries. This is from calcified atherosclerotic disease. The bowel gas pattern is nonobstructed. Numerous colonic diverticula are noted without CT evidence of diverticulitis. Within the right mid abdomen, there is a focal loop of small bowel with bowel wall thickening and luminal narrowing. Immediate craniad to this loop of small bowel, there is another loop of small bowel that demonstrates pneumatosis as well as air within the splenic vascular branches. These findings are compatible with ischemia of this loop of small bowel. The urinary bladder is unremarkable. Moderate central prostate calcifications are identified. The bone windows demonstrate no CT evidence of an osteolytic or osteoblastic lesion. There is no CT evidence of a fracture or dislocation of the visualized osseous structures. Multilevel degenerative disk disease of the lumbar spine is noted. IMPRESSION: 1. FINDINGS COMPATIBLE WITH ISCHEMIA AND PNEUMATOSIS INVOLVING A LOOP OF SMALL BOWEL WITHIN THE RIGHT MID ABDOMEN. THIS FINDING IS LIKELY THE RESULT OF OBSTRUCTION OF BOTH THE CELIAC AND SUPERIOR MESENTERIC ARTERIES FROM ADVANCED CALCIFIED ATHEROSCLEROTIC DISEASE. THESE FINDINGS WERE DISCUSSED WITH DR. PREETHI HOLDER ON 12/26/17 AT 8:00 P.M. 2. COLONIC DIVERTICULOSIS WITH CT EVIDENCE OF DIVERTICULITIS. 3. SMALL HIATAL HERNIA. JOB NUMBER: [id number] MTDD
== END 2017-12-26 20:29 | disposition short-term general hospital (02) ==
LOC: ER 18:12
DX: K55.9 Vascular disorder of intestine, unspecified (principal); R10.13 Epigastric pain; K74.0 Hepatic fibrosis; R11.2 Nausea with vomiting, unspecified; I10 Essential (primary) hypertension; I25.2 Old myocardial infarction; Z87.891 Personal history of nicotine dependence
CPT/HCPCS: 99285 ×2; 96376; 96374; 96375; 83605; 83690; 85025; 85730; 85610; 80053; 74177; Q9967; J1335; J2405; J3010; J2550; J7030